=== PATIENT | male | born 1935 | race Caucasian/White ===

== ENCOUNTER → 2019-05-23 | Outpatient (CLI) | payer OTHER ==
[~2019-05-23] MED LIST: ASPI-496 PO; ATOR80TA PO; CIPR500T87 PO; CLOP75TA52 PO; DABI150C PO; HYDR-3237 PO; LISI-167 PO; METO-95 PO; METO50TA82 PO; MULT1CAP19 PO; NIAC1000; OMEP-110 PO; VISIPAQUE 320 MG/ML, 150ML BOTTLE ONE; ZOLP10TA5 PO
[2019-05-23 10:28] LABS: ANION GAP 7 mmol/L (5-15); CALCIUM 9.5 mg/dL (8.5-10.1); CHLORIDE 112 mmol/L (98-107)
== END | disposition home or self-care (01) ==
LOC: CVU 09:41
PROVIDERS: ATTEND Internal Medicine Cardiovascular Disease
DX: I65.21 Occlusion and stenosis of right carotid artery (principal); I35.0 Nonrheumatic aortic (valve) stenosis; M47.814 Spondylosis without myelopathy or radiculopathy, thoracic region; N40.0 Benign prostatic hyperplasia without lower urinary tract symptoms; K76.0 Fatty (change of) liver, not elsewhere classified; M85.88 Other specified disorders of bone density and structure, other site; I70.0 Atherosclerosis of aorta
CPT/HCPCS: 36415; 71275; 74174; 80048; 93880; Q9967

== ENCOUNTER 2019-06-17 09:12 | Day surgery (SDC) | payer OTHER ==
[~2019-06-17] VITALS: Ht 177.8 cm; Wt 68.2 kg
[~2019-06-17 09:12] MED LIST changes: -VISIPAQUE 320 MG/ML, 150ML BOTTLE ONE
[2019-06-17 09:37] VITALS: BP 168/92
[2019-06-17 10:19] LABS: BASOPHILS # (AUTO) 0.04 x10^3/uL (0-0.1); BASOPHILS % (AUTO) 1 % (0-1); EOSINOPHILS # (AUTO) 0.05 x10^3/uL (0-0.4); EOSINOPHILS % (AUTO) 1 % (1-7); LYMPHOCYTES # (AUTO) 2.23 x10^3/uL (1-3.4); LYMPHOCYTES % (AUTO) 33 % (22-44); MD NO; MEAN CORPUSCULAR HEMOGLOBIN 32.8 pg (27.5-34.5); MEAN CORPUSCULAR VOLUME 99.1 fL (81-97); MEAN PLATELET VOLUME 10.9 fL (7.4-10.4); MONOCYTES # (AUTO) 0.51 x10^3/uL (0.2-0.8); MONOCYTES % (AUTO) 8 % (2-9); NEUTROPHILS # (AUTO) 3.83 x10^3/uL (1.8-6.8); NEUTROPHILS % (AUTO) 58 % (42-75); PLATELET COUNT 151 x10^3/uL (130-400); RED BLOOD COUNT 4.51 x10^6/uL (4.38-5.82); RED CELL DISTRIBUTION WIDTH 14.1 % (9.4-14.8)
[2019-06-17 10:23] LABS: ANION GAP 7 mmol/L (5-15); CALCIUM 9.5 mg/dL (8.5-10.1); CHLORIDE 109 mmol/L (98-107); CREATININE 0.98 mg/dL (0.7-1.3)
[2019-06-17] MEDS ORDERED: HEPARIN 1,000 UNITS/ML, 10ML ONE (10:54)
[2019-06-17] MEDS ORDERED: MIDAZOLAM 1 MG/ML, 5ML ONE (10:54)
[2019-06-17] MEDS ORDERED: FENTANYL PF 100 MCG/2ML ONE (10:54)
[2019-06-17] MEDS ORDERED: LIDOCAINE-MPF 1%, 5ML ONE (10:54)
[2019-06-17] MEDS ORDERED: VERAPAMIL 2.5 MG/ML, 2ML ONE (10:54)
[2019-06-17] MEDS ORDERED: BIVALIRUDIN 250 MG ONE (11:13)
[2019-06-17] MEDS ORDERED: SODIUM CHLORIDE 0.9% 1,000 ML IV SCH (11:40)
== END 2019-06-17 13:37 | disposition home or self-care (01) ==
LOC: CACL 09:12
PROVIDERS: ATTEND Internal Medicine Cardiovascular Disease
DX: I35.0 Nonrheumatic aortic (valve) stenosis (principal); I25.119 Atherosclerotic heart disease of native coronary artery with unspecified angina pectoris; I25.82 Chronic total occlusion of coronary artery; I10 Essential (primary) hypertension; E11.9 Type 2 diabetes mellitus without complications; E78.49 Other hyperlipidemia; I25.2 Old myocardial infarction; I73.9 Peripheral vascular disease, unspecified; I65.21 Occlusion and stenosis of right carotid artery; H91.90 Unspecified hearing loss, unspecified ear; E66.3 Overweight; Z68.21 Body mass index [BMI] 21.0-21.9, adult; Z79.82 Long term (current) use of aspirin; Z79.899 Other long term (current) drug therapy; Z95.0 Presence of cardiac pacemaker; Z95.1 Presence of aortocoronary bypass graft; Z98.890 Other specified postprocedural states; Z82.3 Family history of stroke
CPT/HCPCS: 36415; 80048; 85025; 93455; 93567; 99156; 99157; C1769; C1894; J1644; J2250; J3010; Q9967; J0583

== ENCOUNTER 2019-06-25 05:55 | Inpatient (IN) | payer OTHER ==
[~2019-06-25] VITALS: Ht 175.3 cm; Wt 69.1 kg
[2019-06-25] MEDS ORDERED: SODIUM CHLORIDE 0.9% 1,000 ML IV ONE (06:25)
[2019-06-25] MEDS ORDERED: CHLORHEXIDINE 15 ML UDC MM PRN (06:30)
[2019-06-25] MEDS ORDERED: ONDANSETRON 2MG/ML, 2ML IVPush PRN (06:30)
[2019-06-25 06:31] VITALS: BP 135/81
[2019-06-25 06:45] LABS: BASOPHILS # (AUTO) 0.07 x10^3/uL (0-0.1); BASOPHILS % (AUTO) 1 % (0-1); EOSINOPHILS # (AUTO) 0.08 x10^3/uL (0-0.4); EOSINOPHILS % (AUTO) 2 % (1-7); LYMPHOCYTES # (AUTO) 1.99 x10^3/uL (1-3.4); LYMPHOCYTES % (AUTO) 36 % (22-44); MD NO; MEAN CORPUSCULAR HEMOGLOBIN 32.4 pg (27.5-34.5); MEAN CORPUSCULAR HGB CONC 33.3 g/dL (33.2-36.2); MEAN CORPUSCULAR VOLUME 97.6 fL (81-97); MEAN PLATELET VOLUME 10.6 fL (7.4-10.4); MONOCYTES # (AUTO) 0.46 x10^3/uL (0.2-0.8); MONOCYTES % (AUTO) 8 % (2-9); NEUTROPHILS # (AUTO) 2.98 x10^3/uL (1.8-6.8); NEUTROPHILS % (AUTO) 53 % (42-75); PLATELET COUNT 149 x10^3/uL (130-400); RED BLOOD COUNT 4.26 x10^6/uL (4.38-5.82)
[2019-06-25 06:58] LABS: ALANINE AMINOTRANSFERASE 54 U/L (12-78); ALBUMIN 3.7 g/dL (3.4-5.0); ANION GAP 5 mmol/L (5-15); CALCIUM 9.4 mg/dL (8.5-10.1); CHLORIDE 110 mmol/L (98-107); CREATININE 0.91 mg/dL (0.7-1.3)
[2019-06-25 07:02] LABS: ALKALINE PHOSPHATASE 110 U/L (45-117)
[2019-06-25] MEDS ORDERED: FENTANYL PF 250 MCG/5ML ONE (07:16)
[2019-06-25] MEDS ORDERED: HEPARIN 1,000 UNITS/ML, 10ML ONE ×2 (07:17)
[2019-06-25] MEDS ORDERED: SUCCINYLCHOLINE 20 MG/ML, 10ML ONE (07:23)
[2019-06-25] MEDS ORDERED: ROCURONIUM 10MG/ML,5ML ONE (07:23)
[2019-06-25] MEDS ORDERED: PROPOFOL 10 MG/ML, 20ML ONE (07:24)
[2019-06-25 07:32] LABS: INTERNATIONAL NORMALIZED RATIO 1.08 (0.93-1.1); PROTHROMBIN TIME 11.5 Seconds (9.6-11.5)
[2019-06-25] MEDS ORDERED: CEFAZOLIN 1,000 MG ONE (08:14)
[2019-06-25] MEDS ORDERED: PROTAMINE SULFATE 10 MG/ML, 5ML ONE (09:10)
[2019-06-25] MEDS ORDERED: HYDROcodone/APAP 5/325 TABLET PO PRN (09:30)
[2019-06-25] MEDS ORDERED: LABETALOL 20 MG/4 ML IVPush PRN (09:30)
[2019-06-25] MEDS ORDERED: hydrALAzine 20 MG/ML, 1ML IVPush PRN (09:30)
[2019-06-25] MEDS: ACETAMINOPHEN 325 MG TABLET PO PRN ×2 (10:44→20:58)
[2019-06-25] MEDS: ASPIRIN 81 MG TABLET EC PO SCH (12:28)
[2019-06-25 14:01] VITALS: BP 111/67
[2019-06-25 20:02] VITALS: BP 124/69
[2019-06-25] MEDS: DABIGATRAN 150 MG CAPSULE PO SCH ×2 (20:58→21:00)
[2019-06-25] MEDS: METOPROLOL TARTRATE 50 MG TAB PO SCH (20:59)
[2019-06-25] MEDS ORDERED: ATORVASTATIN 80 MG TABLET PO SCH (21:00)
[2019-06-25] MEDS ORDERED: LISINOPRIL 10 MG TABLET PO SCH (21:00)
[2019-06-26 00:46] VITALS: BP 147/78
[2019-06-26] MEDS ORDERED: DIPHENHYDRAMINE 25 MG CAPSULE PO PRN (01:00)
[2019-06-26 06:56] LABS: ANION GAP 7 mmol/L (5-15); CALCIUM 9.7 mg/dL (8.5-10.1); CHLORIDE 111 mmol/L (98-107)
[2019-06-26 06:59] LABS: BASOPHILS # (AUTO) 0.07 x10^3/uL (0-0.1); BASOPHILS % (AUTO) 1 % (0-1); EOSINOPHILS # (AUTO) 0.05 x10^3/uL (0-0.4); EOSINOPHILS % (AUTO) 1 % (1-7); LYMPHOCYTES # (AUTO) 2.57 x10^3/uL (1-3.4); LYMPHOCYTES % (AUTO) 29 % (22-44); MD NO; MEAN CORPUSCULAR HGB CONC 33.5 g/dL (33.2-36.2); MEAN CORPUSCULAR VOLUME 98.5 fL (81-97); MEAN PLATELET VOLUME 11.4 fL (7.4-10.4); MONOCYTES # (AUTO) 0.77 x10^3/uL (0.2-0.8); MONOCYTES % (AUTO) 9 % (2-9); NEUTROPHILS # (AUTO) 5.48 x10^3/uL (1.8-6.8); NEUTROPHILS % (AUTO) 61 % (42-75); PLATELET COUNT 137 x10^3/uL (130-400); RED BLOOD COUNT 4.15 x10^6/uL (4.38-5.82); RED CELL DISTRIBUTION WIDTH 13.5 % (9.4-14.8)
[2019-06-26] MEDS ORDERED: ASPIRIN 81 MG TABLET EC PO SCH (09:00)
[2019-06-26] MEDS: ASPIRIN 81 MG TABLET EC PO SCH (09:10)
[2019-06-26] MEDS ORDERED: ACET325T26 PO (09:11)
[2019-06-26] MEDS: DABIGATRAN 150 MG CAPSULE PO SCH (09:11)
[2019-06-26] MEDS: METOPROLOL TARTRATE 50 MG TAB PO SCH (09:11)
[2019-06-26 09:38] VITALS: BP 109/64
== END 2019-06-26 11:42 | disposition home or self-care (01) | DRG 266 ==
LOC: ORIP 05:55 → 5SO 11:34
PROVIDERS: ADMIT Internal Medicine Cardiovascular Disease; ATTEND Internal Medicine Cardiovascular Disease
PROC: 02RF38Z Replacement of Aortic Valve with Zooplastic Tissue, Percutaneous Approach (ICD-10-PCS; 2019-06-25)
PROC: B24BZZ4 Ultrasonography of Heart with Aorta, Transesophageal (ICD-10-PCS; principal; 2019-06-25 08:00)
DX: I35.0 Nonrheumatic aortic (valve) stenosis (principal); I50.43 Acute on chronic combined systolic (congestive) and diastolic (congestive) heart failure; I25.10 Atherosclerotic heart disease of native coronary artery without angina pectoris; I48.91 Unspecified atrial fibrillation; I11.0 Hypertensive heart disease with heart failure; E78.5 Hyperlipidemia, unspecified; I73.9 Peripheral vascular disease, unspecified; Z95.0 Presence of cardiac pacemaker; Z79.899 Other long term (current) drug therapy; Z95.1 Presence of aortocoronary bypass graft; Z79.82 Long term (current) use of aspirin
CPT/HCPCS: 33361; 36415; 80048; 80053; 83880; 85025; 85347; 85610; 85730; 86850; 86900; 86923; 93005; 93306; 93312; 93321; 93325; 93355; C1760; C1769; C1894; G0378; J0690; J1644; J2704; J2720; J3010; J0330; Q0163; Q9967

== ENCOUNTER → 2020-06-23 | Outpatient (CLI) | payer OTHER ==
[~2020-06-23] MED LIST changes: +ACET325T26 PO; +ISOS30TA8 PO; +METO-93 PO; +NITR0.4T28 SL
== END | disposition home or self-care (01) ==
LOC: CVU 09:34
PROVIDERS: ATTEND Internal Medicine Cardiovascular Disease
DX: I08.8 Other rheumatic multiple valve diseases (principal); I65.23 Occlusion and stenosis of bilateral carotid arteries; R07.9 Chest pain, unspecified
CPT/HCPCS: 93306; 93880